=== PATIENT | male | born 1995 | race Caucasian/White ===

== ENCOUNTER 2022-09-28 10:37 | Emergency (ER) | payer MEDICAID ==
[~2022-09-28] VITALS: Ht 195.6 cm; Wt 100.0 kg
[2022-09-28 10:46] VITALS: O2SAT 100
[2022-09-28] MEDS ORDERED: LORAZEPAM 2MG/ML CPJ IV STA (11:27)
[2022-09-28] MEDS ORDERED: KETOROLAC 30MG/ML VIAL IV STA (11:27)
[2022-09-28] MEDS ORDERED: ONDANSETRON HCL 4MG/2ML INJ IV STA (11:27)
[2022-09-28] MEDS ORDERED: SODIUM CHLORIDE 0.9% 1,000 ML IV ONE (11:30)
[2022-09-28] MEDS ORDERED: CLONIDINE 0.1MG TABLET PO ONE (11:30)
[2022-09-28 11:43] LABS: BASOPHILS % 0.4 % (0.0-2.0); EOSINOPHILS % 1.2 % (0.0-5.0); HEMATOCRIT. 45.6 % (42.0-52.0); HEMOGLOBIN. 15.8 g/dL (14.0-18.0); LYMPHOCYTES % 12.8 % (20.0-50.0); MEAN CORPUSCULAR HEMOGLOBIN 29.9 pg (28.0-32.0); MEAN CORPUSCULAR HGB CONC 34.7 g/dL (31.0-37.0); MEAN CORPUSCULAR VOLUME 86.4 fL (80.0-94.0); MEAN PLATELET VOLUME 7.4 fl (7.4-10.4); MONOCYTES % 5.8 % (2.0-8.0); NEUTROPHILS % 79.8 % (40.0-76.0); PLATELET 215 x1000/uL (130-400); RED BLOOD CELL COUNT 5.28 mill/uL (4.7-6.1); RED CELL DISTRIBUTION WIDTH 12.9 % (11.6-14.6)
[2022-09-28 12:06] LABS: CHLORIDE 105 mEq/L (98-107); INDEX HEMOLYSI 1 (1-3); INDEX ICTERIC 1 (1-4); INDEX LIPEMIC 1 (1-3); POTASSIUM 4.4 mEq/L (3.5-5.1); SODIUM 135 mEq/L (136-145)
[2022-09-28 12:13] LABS: ALANINE AMINOTRANSFERASE 60 IU/L (13-61); ALBUMIN 4.2 g/dL (3.4-5.0); ASPARTATE AMINOTRANSFERASE 20 IU/L (15-37); BILIRUBIN TOTAL 0.4 mg/dL (0.1-1.0); CALCIUM 9.4 mg/dL (8.5-10.1); CARBON DIOXIDE 30 mEq/L (21-32); CREATININE 0.7 mg/dL (0.6-1.3); ETHANOL BLOOD < 10 mg/dL (-10); GLUCOSE 113 mg/dL (70-105); UREA NITROGEN BLOOD 15 mg/dL (7-21)
[2022-09-28 12:58] VITALS: TEMP 98.1
[2022-09-28 14:26] VITALS: BP 109/69; PULSE 76; RESP 15
== END 2022-09-28 14:26 ==
LOC: ER 10:47
DX: F11.23 Opioid dependence with withdrawal (principal); F41.9 Anxiety disorder, unspecified
CPT/HCPCS: 80053; 80320; 85025; 36415; 96361; 96374; 96375; 99284; J1885; J2060; J2405; J7030; Z7610; G0480